=== PATIENT | male | born 1960 | race Caucasian/White ===

== ENCOUNTER 2022-05-23 11:44 | Emergency (ER) | payer BC ==
[~2022-05-23] VITALS: Ht 152.4 cm; Wt 86.2 kg
[2022-05-23 11:52] VITALS: BP 120/73
--- NOTE | 2022-05-23 11:56 | NUR ---
Patient BIBA to bed 6.
--- NOTE | 2022-05-23 12:08 | NUR ---
62 y/o male biba from [facility] for diarrhea x 1 month. Patient reports mustard yellow color stool. Patient denies taking any medication for symptoms. Patient denies any new foods or sick contacts. Denies any blood in stool. Patient reports vomiting today. Patient also reports a fall today. Denies any LOC, or head injury. Medical History: HTN, BPH, DM, Neuropath, GERD NKDA
[2022-05-23] MEDS ORDERED: NACL 0.9% 1,000 ML IV ONE (12:25)
[2022-05-23] MEDS ORDERED: DICYCLOMINE 20 MG/2 ML VIAL IM ONE (12:25)
[2022-05-23 12:44] LABS: BASOPHILS # (AUTO) 0.1 K/uL (0.00-0.22); BASOPHILS % (AUTO) 0.7 % (0.0-2.0); EOSINOPHILS # (AUTO) 0.2 K/uL (0-0.4); EOSINOPHILS % (AUTO) 2.2 % (0.0-4.0); HEMATOCRIT 35.2 % (36-52); HEMOGLOBIN 11.9 g/dL (12.0-18.0); LYMPHOCYTES # (AUTO) 2.1 K/uL (2.0-11.5); LYMPHOCYTES % (AUTO) 24.4 % (20.5-51.1); MEAN CORPUSCULAR HEMOGLOBIN 28 pg (27-31); MEAN CORPUSCULAR HGB CONC 34 g/dL (33-37); MEAN CORPUSCULAR VOLUME 82.7 fL (80-94); MONOCYTES # (AUTO) 0.8 K/uL (0.8-1.0); MONOCYTES % (AUTO) 8.6 % (1.7-9.3); NEUTROPHILS # (AUTO) 5.6 K/uL (1.8-7.7); NEUTROPHILS % (AUTO) 64.1 % (42.2-75.2); PLATELET COUNT (AUTO) 159 K/uL (140-450); RED BLOOD CELL COUNT(AUTO) 4.26 MIL/uL (4.20-6.10); RED CELL DISTRIBUTION WIDTH 14.8 % (11.6-13.7); WHITE BLOOD COUNT (AUTO) 8.8 K/uL (4.8-10.8)
--- NOTE | 2022-05-23 12:45 | NUR ---
Patient ambulated to restroom.
[2022-05-23 13:16] LABS: ALBUMIN 3.8 g/dL (3.4-5.0); ANION GAP 14.3 (8-16); CARBON DIOXIDE 29.4 mmol/L (21-32); CREATININE 1.5 mg/dL (0.6-1.3); POTASSIUM 3.7 mmol/L (3.5-5.1); TOTAL BILIRUBIN 0.8 mg/dL (0.0-1.0)
[2022-05-23] MEDS ORDERED: BEN10 PO (13:51)
[2022-05-23] MEDS ORDERED: ONDA-188 SL (13:51)
[2022-05-23 14:20] VITALS: BP 135/70
--- NOTE | 2022-05-23 14:20 | NUR ---
Patient discharged with v/s stable. Written and verbal after care instructions given. Patient alert, oriented and verbalized understanding of instructions. Ambulatory with steady gait. All questions addressed prior to discharge. ID band removed. Patient advised to follow up with PMD. Rx of Adeline and Trisha given. Opportunity to ask questions provided and answered.
--- NOTE | 2022-05-23 14:21 | NUR ---
The patient's care was reviewed and supervised by Jeanne Gonzalez, RN, RN.
== END 2022-05-23 14:20 | disposition home or self-care (01) ==
LOC: MED 11:44
DX: K52.9 Noninfective gastroenteritis and colitis, unspecified (principal); E11.9 Type 2 diabetes mellitus without complications; I10 Essential (primary) hypertension; Z79.899 Other long term (current) drug therapy
CPT/HCPCS: 36415; 80053; 83690; 85025; 96360; 96372; 99283; J0500; J7030

== ENCOUNTER 2022-11-28 20:27 | Emergency (ER) | payer BC ==
[~2022-11-28] VITALS: Ht 185.4 cm; Wt 83.9 kg
[~2022-11-28 20:27] MED LIST: BEN10 PO; ONDA-188 SL
[2022-11-28 20:30] VITALS: BP 132/81; PULSE 89; RESP 18; TEMP 98.3; O2SAT 97
[2022-11-28] MEDS ORDERED: NACL 0.9% 1,000 ML IV ONE (21:00)
[2022-11-28 21:14] LABS: BASOPHILS # (AUTO) 0.1 K/uL (0.00-0.22); BASOPHILS % (AUTO) 0.9 % (0.0-2.0); EOSINOPHILS # (AUTO) 0.3 K/uL (0-0.4); EOSINOPHILS % (AUTO) 2.7 % (0.0-4.0); HEMATOCRIT 35.1 % (36-52); HEMOGLOBIN 11.9 g/dL (12.0-18.0); LYMPHOCYTES # (AUTO) 2.5 K/uL (2.0-11.5); LYMPHOCYTES % (AUTO) 25.7 % (20.5-51.1); MEAN CORPUSCULAR HEMOGLOBIN 28 pg (27-31); MEAN CORPUSCULAR HGB CONC 34 g/dL (33-37); MEAN CORPUSCULAR VOLUME 81.6 fL (80-94); MONOCYTES # (AUTO) 0.9 K/uL (0.8-1.0); MONOCYTES % (AUTO) 9.5 % (1.7-9.3); NEUTROPHILS % (AUTO) 61.2 % (42.2-75.2); PLATELET COUNT (AUTO) 139 K/uL (140-450); RED CELL DISTRIBUTION WIDTH 14.1 % (11.6-13.7); WHITE BLOOD COUNT (AUTO) 9.8 K/uL (4.8-10.8)
[2022-11-28 21:28] LABS: ANION GAP 12.4 (8-16); CALCIUM 8.1 mg/dL (8.5-10.1); CREATININE 1.4 mg/dL (0.6-1.3); POTASSIUM 4.4 mmol/L (3.5-5.1)
[2022-11-28] MEDS ORDERED: INSULIN REGULAR, HUMAN 100 UNIT/ML VIAL IVP ONE ×2 (21:35→21:55)
[2022-11-28 23:03] VITALS: BP 132/81; PULSE 89; RESP 18; TEMP 98.3; O2SAT 97
== END 2022-11-28 23:03 | disposition home or self-care (01) ==
LOC: MED 20:27
DX: E11.65 Type 2 diabetes mellitus with hyperglycemia (principal); I10 Essential (primary) hypertension; Z79.899 Other long term (current) drug therapy; Z79.4 Long term (current) use of insulin
CPT/HCPCS: 36415; 80048; 82803; 82948; 85025; 96361; 96374; 99283; J1815; J7030

== ENCOUNTER 2022-12-15 10:58 | Emergency (ER) | payer BC ==
[~2022-12-15] VITALS: Ht 185.4 cm; Wt 81.6 kg
[2022-12-15 10:59] VITALS: BP 132/82; PULSE 85; RESP 16; TEMP 97.2; O2SAT 98
[2022-12-15] MEDS ORDERED: NACL 0.9% 1,000 ML IV ONE (11:20)
[2022-12-15 11:35] LABS: BASOPHILS # (AUTO) 0.1 K/uL (0.00-0.22); EOSINOPHILS # (AUTO) 0.3 K/uL (0-0.4); EOSINOPHILS % (AUTO) 2.6 % (0.0-4.0); HEMATOCRIT 36.7 % (36-52); HEMOGLOBIN 12.4 g/dL (12.0-18.0); LYMPHOCYTES # (AUTO) 2.3 K/uL (2.0-11.5); LYMPHOCYTES % (AUTO) 23.2 % (20.5-51.1); MEAN CORPUSCULAR HEMOGLOBIN 28 pg (27-31); MEAN CORPUSCULAR HGB CONC 34 g/dL (33-37); MEAN CORPUSCULAR VOLUME 82.5 fL (80-94); MONOCYTES % (AUTO) 10.4 % (1.7-9.3); NEUTROPHILS # (AUTO) 6.2 K/uL (1.8-7.7); NEUTROPHILS % (AUTO) 62.8 % (42.2-75.2); PLATELET COUNT (AUTO) 160 K/uL (140-450); RED BLOOD CELL COUNT(AUTO) 4.45 MIL/uL (4.20-6.10); RED CELL DISTRIBUTION WIDTH 14.2 % (11.6-13.7); WHITE BLOOD COUNT (AUTO) 9.9 K/uL (4.8-10.8)
[2022-12-15 12:07] LABS: ALANINE AMINOTRANSFERASE 24 U/L (12-78); ALBUMIN 3.7 g/dL (3.4-5.0); ALKALINE PHOSPHATASE 116 U/L (50-136); ANION GAP 11.8 (8-16); ASPARTATE AMINOTRANSFERASE 14 U/L (15-37); CALCIUM 8.9 mg/dL (8.5-10.1); CARBON DIOXIDE 28.7 mmol/L (21-32); CHLORIDE 98 mmol/L (98-107); CREATININE 1.3 mg/dL (0.6-1.3); GFR ARICAN-AMERICAN 71 mL/min (>90); GFR NON ARICAN-AMERICAN 59 mL/min (>90); GLUCOSE 398 mg/dL (74-106); POTASSIUM 4.5 mmol/L (3.5-5.1); SODIUM SERUM 134 mmol/L (136-145); TOTAL BILIRUBIN 0.7 mg/dL (0.0-1.0); TOTAL PROTEIN, SERUM 7.1 g/dL (6.4-8.2); UREA NITROGEN, BLOOD 24 mg/dL (7-18)
[2022-12-15 12:10] LABS: ACETONE, SERUM Negative (NEGATIVE)
[2022-12-15 13:29] VITALS: BP 129/78; PULSE 72; RESP 16; TEMP 98; O2SAT 99
== END 2022-12-15 13:20 ==
LOC: MED 10:58
DX: E11.65 Type 2 diabetes mellitus with hyperglycemia (principal); I10 Essential (primary) hypertension; Z79.4 Long term (current) use of insulin; Z79.899 Other long term (current) drug therapy
CPT/HCPCS: 36415; 80053; 82009; 82803; 82948; 85025; 96360; 99283; J7030